=== PATIENT | female | born 1975 | race Caucasian/White ===

== ENCOUNTER 2018-05-18 13:15 | Emergency (ER) | payer OTHER ==
[2018-05-18 13:30] VITALS: BP 127/78; PULSE 76; TEMP 98.4; BMI 24.0
--- NOTE | 2018-05-18 14:06 | PDOC ---
History of Present Illness <Brenda Coulter - Last Filed: 05/18/18 14:15> - General History Source: Patient Exam Limitations: No Limitations - History of Present Illness Initial Comments: 05/18/18 14:31 The patient is a 43 year old female, with no significant past medical history who presents to the emergency department with nausea, lightheadedness and mild forgetfulness since hitting her left advent while opening a car door 2 days ago. She denies LOC. She states she was able to drive after sustaining the injury without complications. She reports a headache to the affected area, 4/10 in severity which completely resolves with ibuprofen. She states she was prompted to come to the ED because her friend is a doctor and advised evaluation. The patient denies chest pain, shortness of breath, and dizziness. The patient denies fever, chills, vomit, diarrhea and constipation. The patient denies dysuria, frequency, urgency and hematuria. Allergies: NKDA <Penny Vega - Last Filed: 05/18/18 14:35> - General Chief Complaint: Injury Stated Complaint: HIT HEAD ON CAR DOOR Time Seen by Provider: 05/18/18 14:06 Past History - Past Medical History COPD: No - Suicide/Smoking/Psychosocial Hx Smoking History: Never smoked Hx Alcohol Use: Yes (OCCASIONAL) Drug/Substance Use Hx: No <Brenda Coulter - Last Filed: 05/18/18 14:15> <Penny Vega - Last Filed: 05/18/18 14:35> - Past Medical History Allergies/Adverse Reactions: Allergies Allergy/AdvReac Type Severity Reaction Status Date / Time No Known Allergies Allergy Verified 05/18/18 13:24 Home Medications: Ambulatory Orders NK [No Known Home Medication] 05/18/18 Review of Systems - Review of Systems Able to Perform ROS?: Yes Comments:: 05/18/18 14:32 GENERAL/CONSTITUTIONAL: No fever or chills. No weakness. HEAD, EYES, EARS, NOSE AND THROAT: No change in vision. No ear pain or discharge. No sore throat. CARDIOVASCULAR: No chest pain or shortness of breath. RESPIRATORY: No cough, wheezing, or hemoptysis. GASTROINTESTINAL: (+)nausea, No vomiting, diarrhea or constipation. GENITOURINARY: No dysuria, frequency, or change in urination. MUSCULOSKELETAL: No joint or muscle swelling or pain. No neck or back pain. SKIN: No rash NEUROLOGIC: (+) lightheaded. headache, mild forgetfulness. NO vertigo, loss of consciousness, or change in strength/sensation. ENDOCRINE: No increased thirst. No abnormal weight change. HEMATOLOGIC/LYMPHATIC: No anemia, easy bleeding, or history of blood clots. ALLERGIC/IMMUNOLOGIC: No hives or skin allergy. <Penny Vega - Last Filed: 05/18/18 14:35> *Physical Exam - Vital Signs Last Vital Signs Temp Pulse Resp BP Pulse Ox 98.4 F 76 16 127/78 100 05/18/18 13:23 05/18/18 13:23 05/18/18 13:23 05/18/18 13:23 05/18/18 13:23 <Brenda Coulter - Last Filed: 05/18/18 14:15> - Vital Signs Last Vital Signs Temp Pulse Resp BP Pulse Ox 98.4 F 76 16 127/78 100 05/18/18 13:23 05/18/18 13:23 05/18/18 13:23 05/18/18 13:23 05/18/18 13:23 - Physical Exam Comments: 05/18/18 14:33 GENERAL: Awake, alert, and fully oriented, in no acute distress HEAD: (+) mild ttp to left advent. No ecchymosis EYES: PERRLA, EOMI, sclera anicteric, conjunctiva clear ENT: Auricles normal inspection, hearing grossly normal, nares patent, oropharynx clear without exudates. Moist mucosa NECK: Normal ROM, supple, no lymphadenopathy, JVD, or masses LUNGS: Breath sounds equal, clear to auscultation bilaterally. No wheezes, and no crackles HEART: Regular rate and rhythm, normal S1 and S2, no murmurs, rubs or gallops ABDOMEN: Soft, nontender, normoactive bowel sounds. No guarding, no rebound. No masses EXTREMITIES: Normal range of motion, no edema. No clubbing or cyanosis. No cords, erythema, or tenderness NEUROLOGICAL: Cranial nerves II through XII grossly intact. Normal speech, normal gait SKIN: Warm, Dry, normal turgor, no rashes or lesions noted. <Penny Vega - Last Filed: 05/18/18 14:35> *DC/Admit/Observation/Transfer - Discharge Dispostion Decision to Admit order: No <Brenda Coulter - Last Filed: 05/18/18 14:15> - Attestations Scribe Attestion: 05/18/18 14:34 Documentation prepared by Penny Vega, acting as medical oncology physician for Brenda Coulter MD, <Pneny Vega - Last Filed: 05/18/18 14:35> Diagnosis at time of Disposition: Concussion Qualifiers: Encounter type: initial encounter Loss of consciousness presence/duration: without LOC Qualified Code(s): S06.0X0A - Concussion without loss of consciousness, initial encounter - Discharge Dispostion Disposition: HOME Condition at time of disposition: Good - Patient Instructions Printed Discharge Instructions: DI for Concussion Additional Instructions: you came to the ED for persistent headache after being hit in the head two days ago. Your symptoms are most consistent with a concussion. you should expect to feel nauseous, have headaches, feel dizzy and be mildly forgetful for the next few weeks. You should return immediately to the ED for severe pain, severe nausea with multiple episodes of vomiting, confusion or passing out.
== END 2018-05-18 14:22 | disposition home or self-care (01) ==
LOC: FER 13:15
DX: S06.0X0A Concussion without loss of consciousness, initial encounter (principal); W22.8XXA Striking against or struck by other objects, initial encounter; Y93.89 Activity, other specified; Y92.89 Other specified places as the place of occurrence of the external cause
CPT/HCPCS: 99281-25

== ENCOUNTER 2023-05-22 09:40 | Emergency (ER) | payer OTHER ==
[2023-05-22] MEDS ORDERED: ONDANSETRON *ODT* 4 MG TABLET SL ONE (09:45)
[2023-05-22] MEDS ORDERED: ONDANSETRON 4 MG/2 ML VIAL ONE ×2 (09:54→10:03)
[2023-05-22] MEDS ORDERED: ACETAMINOPHEN INJECTION 100 ML IVPB ONE (09:54)
[2023-05-22] MEDS ORDERED: FAMOTIDINE 20 MG/50 ML IVPB 20 MG/50 ML MG IVPB ONE (09:54)
[2023-05-22 10:01] VITALS: RESP 20; BMI 24.7
[2023-05-22] MEDS: ACETAMINOPHEN 1000 MG/100 ML BAG IVPB ONE (10:02)
[2023-05-22] MEDS: ONDANSETRON 4 MG/2 ML VIAL IVPUSH ONE ×2 (10:02)
[2023-05-22] MEDS: SODIUM CHLORIDE 0.9% 500 ML INFUS.BAG IV ONE (10:02)
[2023-05-22] MEDS: FAMOTIDINE 20 MG/50 ML IVPB 20 MG/50 ML MG IVPB ONE (10:02)
[2023-05-22] MEDS ORDERED: METOCLOPRAMIDE HCL INJECTION 10 MG/2 ML VIAL ONE (11:30)
[2023-05-22] MEDS: METOCLOPRAMIDE HCL INJECTION 10 MG/2 ML VIAL IVPUSH ONE (11:35)
[2023-05-22] MEDS ORDERED: KETOROLAC TROMETHAMINE 30 MG/1 ML VIAL ONE (13:40)
[2023-05-22 14:07] VITALS: BP 111/58; PULSE 73; TEMP 97.2
[2023-05-22 14:33] LABS: HEMATOCRIT 46.5 % (32.4-45.2); HEMOGLOBIN 15.7 G/dL (10.7-15.3); MCH 32.6 pg (25.7-33.7); MCHC 33.7 g/dl (32.0-36.0); MEAN CELL VOLUME 96.6 fl (80-96); PLATELET COUNT 293.5 10^3/uL (134-434); RBC 4.81 10^6/uL (3.60-5.2); RDW 13.9 % (11.6-15.6)
[2023-05-22 14:56] LABS: ALBUMIN 5.2 g/dl (3.4-5.0); BILIRUBIN,TOTAL 1.3 mg/dl (0.2-1); CALCIUM 10.2 mg/dl (8.5-10.1); CREATININE 0.8 mg/dl (0.6-1.3); POTASSIUM 4.3 mmol/L (3.5-5.1); TOT PROT 7.7 g/dl (6.4-8.2)
== END 2023-05-22 16:21 | disposition home or self-care (01) ==
LOC: FER 09:40
PROC: 3E033GC Introduction of Other Therapeutic Substance into Peripheral Vein, Percutaneous Approach (ICD-10-PCS; principal; 2023-05-22)
PROC: 3E030NZ Introduction of Analgesics, Hypnotics, Sedatives into Peripheral Vein, Open Approach (ICD-10-PCS; 2023-05-22)
PROC: 3E030GC Introduction of Other Therapeutic Substance into Peripheral Vein, Open Approach (ICD-10-PCS; 2023-05-22)
PROC: 3E030GC Introduction of Other Therapeutic Substance into Peripheral Vein, Open Approach (ICD-10-PCS; 2023-05-22)
DX: R19.7 Diarrhea, unspecified (principal); R11.2 Nausea with vomiting, unspecified; R10.9 Unspecified abdominal pain; R68.83 Chills (without fever)
CPT/HCPCS: 36415; 80053; 83690; 85025; 99284-25; J0131